=== PATIENT | male | born 1985 | race African-American/Black ===

== ENCOUNTER 2016-08-23 10:33 | Emergency (ER) | payer SELFPAY ==
--- NOTE | 2016-08-23 10:57 | ER Document Report ---
HPI - HPI Patient complains to provider of: right hand injury Pain Level: 3 Context: 31 yo male fell on right hand while playing basketball last week. c/o pain and swelling to right dorsal hand Associated Symptoms: None Exacerbated by: Movement Relieved by: Denies Similar symptoms previously: No Recently seen / treated by doctor: No - ROS Systems Reviewed and Negative: Yes All other systems reviewed and negative - CARDIOVASCULAR Cardiovascular: DENIES: Chest pain - DERM Skin Color: Normal Past Medical History - General Information source: Patient - Social History Smoking Status: Never Smoker Chew tobacco use (# tins/day): No Frequency of alcohol use: None Drug Abuse: None Lives with: Family Family History: Reviewed & Not Pertinent Patient has suicidal ideation: No Patient has homicidal ideation: No - Medical History Medical History: Negative Renal/ Medical History: Denies: Hx Peritoneal Dialysis Surgical Hx: Negative - Immunizations Hx Diphtheria, Pertussis, Tetanus Vaccination: No Vertical Provider Document - CONSTITUTIONAL Agree With Documented VS: Yes - INFECTION CONTROL TRAVEL OUTSIDE OF THE [place] IN LAST 30 DAYS: No - HEENT HEENT: Atraumatic, PERRLA - NECK Neck: Normal Inspection, Supple - RESPIRATORY Respiratory: Breath Sounds Normal, No Respiratory Distress O2 Sat by Pulse Oximetry: 97 - CARDIOVASCULAR Cardiovascular: Regular Rate, Regular Rhythm - BACK Back: Normal Inspection - MUSCULOSKELETAL/EXTREMETIES Musculoskeletal/Extremeties: Tender - right dorsal hand over 4th and 5th metacarpals, Edema. negative: Eccymosis - NEURO Level of Consciousness: Awake, Alert, Appropriate - DERM Integumentary: Warm, Dry, No Rash Course - Re-evaluation Re-evalutation: 08/23/16 11:43 xray negative for fracture. results reviewed with patient. ra applied. pt stable for discharge - Vital Signs Vital signs: Temp Pulse Resp BP Pulse Ox 99.0 F 73 16 140/92 H 97 08/23/16 10:36 08/23/16 10:36 08/23/16 10:36 08/23/16 10:36 08/23/16 10:36 Discharge - Discharge Clinical Impression: Sprain of right hand Qualifiers: Encounter type: initial encounter Qualified Code(s): S63.91XA - Sprain of unspecified part of right wrist and hand, initial encounter Condition: Stable Disposition: HOME, SELF-CARE Instructions: Sprain ([facility]), Ra Wrap ([facility]), Ibuprofen (General) ([facility]), Ice & Elevation ([facility]) Additional Instructions: Your xray is negative for fracture wear ra for comfort and support ice and elevate hand as much as possible Ibuprofin for swelling Follow up with primary care if symptoms persist Prescriptions: Ibuprofen [Motrin 800 Mg Tablet] 800 mg PO Q6H #20 tablet
[2016-08-23 12:15] VITALS: BP 136/80
== END 2016-08-23 12:10 | disposition home or self-care (01) ==
LOC: ER 10:33
DX: S63.91XA Sprain of unspecified part of right wrist and hand, initial encounter (principal); W19.XXXA Unspecified fall, initial encounter; Y93.67 Activity, basketball
CPT/HCPCS: 99283

== ENCOUNTER 2018-10-21 19:38 | Emergency (ER) | payer SELFPAY ==
--- NOTE | 2018-10-21 22:20 | ER Document Report ---
ED General - General Chief Complaint: Back Pain Stated Complaint: LOWER BACK,HIP PAIN RIGHT SIDE Time Seen by Provider: 10/21/18 22:08 TRAVEL OUTSIDE OF THE [place] IN LAST 30 DAYS: No - HPI Notes: 33 year old male to the ER with C/O right sided low back pain that began on Sunday afternoon (4 days ago). Patient states that this started after work. He admits that he pushing and pulls alot at work. He is right handed so he typically uses his right side more than the left. Denies any fall, blunt trauma, bladder/bowel incontinence, saddle parethesias, radiculopathy. He denies fevers. He does not use IV drugs. Has been taking Tylenol and Motrin at home with some relief, but has noticed he has to continue to take medicine for his pain. - Related Data Allergies/Adverse Reactions: No Known Allergies Allergy (Verified 10/21/18 19:46) Past Medical History - General Information source: Patient, Relative - Social History Smoking Status: Never Smoker Chew tobacco use (# tins/day): No Frequency of alcohol use: None Drug Abuse: None Family History: Reviewed & Not Pertinent Patient has suicidal ideation: No Patient has homicidal ideation: No Renal/ Medical History: Denies: Hx Peritoneal Dialysis - Immunizations Hx Diphtheria, Pertussis, Tetanus Vaccination: No Review of Systems - Review of Systems Constitutional: No symptoms reported EENT: No symptoms reported Cardiovascular: No symptoms reported. denies: Chest pain, Palpitations, Orthopnea, Dyspnea, Dizziness, Lightheaded Respiratory: No symptoms reported. denies: Cough, Short of breath Gastrointestinal: No symptoms reported. denies: Diarrhea, Nausea, Vomiting Genitourinary: denies: Frequency, Hematuria, Incontinence Musculoskeletal: Back pain Skin: No symptoms reported Hematologic/Lymphatic: No symptoms reported Neurological/Psychological: No symptoms reported. denies: Numbness, Tingling -: Yes All other systems reviewed and negative Physical Exam - Vital signs Vitals: Temp Pulse Resp BP Pulse Ox 97.9 F 71 18 136/60 H 97 10/21/18 19:50 10/21/18 19:50 10/21/18 19:50 10/21/18 19:50 10/21/18 19:50 Interpretation: Normal - General General appearance: Appears well, Alert - HEENT Head: Normocephalic, Atraumatic Eyes: Normal Pupils: PERRL - Respiratory Respiratory status: No respiratory distress Chest status: Nontender Breath sounds: Normal Chest palpation: Normal - Cardiovascular Rhythm: Regular Heart sounds: Normal auscultation Murmur: No - Abdominal Inspection: Normal Distension: No distension Bowel sounds: Normal Tenderness: Nontender Organomegaly: No organomegaly - Back Back: Normal, Tender - there is TTP over the right lumbar paraspinals with noted muscular tightness. Patient can ambulate without difficulty. He has 5/5 strength in flexion and extension in BLE against resistance. Negative SLR.. No: Deformity/step-off, CVA tenderness, Vertebra tenderness - Extremities General upper extremity: Normal inspection, Nontender, Normal color, Normal ROM, Normal temperature General lower extremity: Normal inspection, Nontender, Normal color, Normal ROM, Normal temperature, Normal weight bearing. No: Staci's sign - Neurological Neuro grossly intact: Yes Cognition: Normal Orientation: AAOx4 Lang[place] Coma Scale Eye Opening: Spontaneous David Coma Scale Verbal: Oriented David Coma Scale Motor: Obeys Commands Langston Coma Scale Total: 15 Speech: Normal Motor strength normal: LUE, RUE, LLE, RLE Sensory: Normal - Psychological Associated symptoms: Normal affect, Normal mood - Skin Skin Temperature: Warm Skin Moisture: Dry Skin Color: Normal Course - Vital Signs Vital signs: Temp Pulse Resp BP Pulse Ox 98 F 63 18 137/85 H 99 10/21/18 22:40 10/21/18 22:40 10/21/18 22:40 10/21/18 22:40 10/21/18 22:40 - Transfer of Care Notes: 10/21/18 22:22 Impression: Right sided low back strain. No midline TTP, doubt need for imaging today. No emergent symptoms of bladder/bowel incontinence, saddle paresthesias, radiculopathy. He does not use IV drugs. No urinary complaints. Patient ambulating in the ER and looks well. Will have him follow with PCP. Discharge - Discharge Clinical Impression: Right low back pain, Low back strain Condition: Stable Disposition: HOME, SELF-CARE Instructions: Family Physicians / Practices, Low Back Pain ([facility]) Additional Instructions: Apply Heat three times a day for 20 minutes. Take medicines as prescribed. Gentle stretching. Follow with PCP. Prescriptions: Cyclobenzaprine HCl [Flexeril 10 mg Tablet] 10 mg PO TID #20 tablet Ibuprofen [Motrin 800 Mg Tablet] 800 mg PO Q6H #20 tablet Forms: Return to Work
[2018-10-21 22:41] VITALS: BP 137/85
== END 2018-10-21 22:41 | disposition home or self-care (01) ==
LOC: ER 19:38
DX: S39.012A Strain of muscle, fascia and tendon of lower back, initial encounter (principal); X58.XXXA Exposure to other specified factors, initial encounter
CPT/HCPCS: 99283